=== PATIENT | male | born 1965 | race Caucasian/White ===

== ENCOUNTER 2019-02-07 20:56 | Emergency (ER) | payer OTHER, SELFPAY ==
[2019-02-07 21:01] VITALS: BP 155/107; PULSE 103; RESP 18; TEMP 37.1; O2SAT 95; BMI 38.4
--- NOTE | 2019-02-07 21:06 | EKG12_ITS ---
Test Reason : CP Blood Pressure : / mmHG Vent. Rate : 097 BPM Atrial Rate : 097 BPM P-R Int : 156 ms QRS Dur : 100 ms QT Int : 342 ms P-R-T Axes : 050 -11 043 degrees QTc Int : 434 ms Normal sinus rhythm Normal ECG Confirmed by LOVE VELAZQUEZ, UGO ([id number]), content editor TANIA HACKETT ([id number]) on 02/09/2019 11:57:46 AM Referred By: IGOR Confirmed By:UGO ALEMAN MD
--- NOTE | 2019-02-07 21:10 | RAD_ITS ---
STUDY: X-RAY CHEST REASON FOR EXAM: Male, 54 years old. Cough TECHNIQUE: Frontal view COMPARISON: None. FINDINGS: The lungs are clear and expanded. There is no demonstrated pleural abnormality. Normal size heart. Normal mediastinum and alona. Normal visualized pulmonary arteries. Normal visualized aortic arch and descending thoracic aorta. Normal visualized thoracic spine. Normal visualized ribs, clavicles, and shoulders. There is no demonstrated abnormality of the visualized soft tissue structures of the upper abdomen. RAD/Chest 1 View (Portable) IMPRESSION: Normal x-ray examination of the chest. Electronically Signed: Bimal Rocha DO at 21:23 EDT Tel [phone], Service support ,
--- NOTE | 2019-02-07 21:29 | ED.VIS.GEN ---
History of Present Illness Chief Complaint: Chest Pain Informant: Patient Onset: Days Context: Gradual Onset Timing: Intermittent Current Severity: Moderate Maximum Severity: Moderate Narrative: The patient presents to the emergency department chest pain, shortness of breath, and generalized myalgias. Patient states he is in his normal state of health. He states over the past few days, he has been increasingly short of breath. He states he cannot walk a distance without getting dyspneic. The patient did recently have long travel where he was driving for approximately 12 hours. He states that he noted some pain in his right lower extremity and what felt like a cramp in his calf. Since then, he said more pain in his chest that he describes as a bandlike sensation. He states it feels like he cannot catch his breath or take a deep breath. He states when he takes a deep breath, he will have coughing spells. He is also been having myalgias and arthralgias. He felt like he has had a fever, but is taken his temperature and he has not had one. Patient does have a history of hypertension hyperlipidemia. He denies any history of coronary vascular disease. He denies any nausea or vomiting. Prior similar symptoms: No Recent Illness/Hospitalization: No Past Medical History - Allergies and Home Meds Allergies/Adverse Reactions: Allergies No Known Allergies Allergy (Verified 02/07/19 21:07) Primary Care Physician: Isabell Leiva DO [STAFF PHYSICIAN] - 1 Day Prior records reviewed: Yes Past Medical History: - Smoking Status: Never smoker Review of Systems General: Denies: Chills, Fever, Sweats Eyes: Denies: Visual changes - bilaterally, Diplopia ENT: Denies: Rhinorrhea, Sore throat Cardiovascular: Reports: Chest pain Respiratory: Reports: Dyspnea Gastrointestinal: Reports: Nausea Genitourinary: Denies: Dysuria, Hematuria, Frequency Musculoskeletal: Reports: Myalgias, Arthralgias Skin: Denies: Rash, Wounds Neurological: Denies: Headache, Weakness, Numbness Physical Exam Vital Signs/Narrative: Vital Signs Temp Pulse Resp BP Pulse Ox 02/07/19 21:01 98.7 F 103 H 18 155/107 H 95 Inital Vital Signs reviewed: Yes General: Well nourished, Well developed, No Acute Distress Head: Normocephalic, Atraumatic Eyes: Perrl, EOMI ENT: Moist mucous membranes, No rhinorrhea Neck: Supple, Nontender Cardiovascular: Regular rate, Regular rhythm, No murmurs Respiratory: No distress, CTA bilaterally, Chest nontender Abdomen: Soft, Nontender, Nondistended, Normal bowel sounds Back: Nontender, Normal Inspection Extremities: Nontender, No edema Skin: Normal color, No rash Neurological: Alert, Oriented x3, Cranial nerves II-XII grossly intact, Normal Strength, Normal Sensation Psychological: Normal affect, Normal Mood Diagnostic/Tx/Re-eval Chest X-Ray - ED: 1 View, Normal, Heart, Lungs Clinical Impression(s) from Imaging Studies Chest X-Ray 02/07/19 21:10 IMPRESSION: Normal x-ray examination of the chest. Electronically Signed: Bimal Rocha DO at 21:23 EDT Tel [phone], Service support , Chest CTA 02/07/19 21:50 IMPRESSION: No demonstrated pulmonary embolism or arterial dissection. Bilateral small pulmonary nodules. Electronically Signed: Bimal Rocha DO at 22:35 EDT Tel [phone], Service support , Abnormal Lab Results 02/07/19 02/07/19 21:14 21:14 WBC 7.1 RBC 5.19 Hgb 16.5 Hct 46.6 MCV 89.8 MCH 31.8 MCHC 35.4 RDW Std Deviation 40.6 RDW Coeff of Oniel 12.3 Plt Count 150 MPV 9.6 Immature Gran % (Auto) 0.300 Neut % (Auto) 54.7 Lymph % (Auto) 26.1 Donley % (Auto) 17.6 H Eos % (Auto) 0.7 Baso % (Auto) 0.6 Absolute Neuts (auto) 3.9 Absolute Lymphs (auto) 1.84 Nucleated RBC % 0 Sodium 137 Potassium 3.7 Chloride 102 Carbon Dioxide 27.0 Anion Gap 8 BUN 16 Creatinine 1.33 H Estim Creat Clear Calc 71.31 Est GFR (MDRD) Af Amer 73 Est GFR (MDRD) Non-Af 60 BUN/Creatinine Ratio 12.0 Glucose 127 H Calcium 9.5 Magnesium 2.0 Troponin I < 0.015 - Rhythm Strip Rhythm Strip: Sinus Rhythm Rate: 90 Ectopy: None - EKG Initial EKG Interpretation: Sinus Rhythm, No Acute Injury Pattern Prior: Unchanged - Medical Decision Making The patient presents to the emergency department with a large constellation of symptoms. He has had headache, chest pain, dyspnea, and myalgias. EKG was obtained on arrival. With sinus rhythm without acute ischemia. The patient is also been having dyspnea and feels like he cannot take a deep breath. He had calf pain with recent travel. I did not feel that a d-dimer would effectively rule him out. Screening labs are obtained. He does have a monocytic predominance on his blood work, but otherwise these are unremarkable. His cardiac enzymes are normal. His CTA does not demonstrate any pulmonary embolus, dissection, or pneumonia. I do not have a great reason to explain his entire constellation of symptoms, but I do feel that cardiac rule out would be appropriate. The patient is hesitant for admission. He states he is also been under significant amount of stress. He states that 5 people around his age range have within the past 2 months. 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 He feels like this is wearing on him. The patient wants to follow-up as an outpatient. I did discuss with him my concerns, but he was at least agreeable for repeat troponin testing. Given his intermittent headaches, I did also want to rule out intracranial abnormality so CT of the head was obtained. These are both currently pending. I do feel that his lungs are both negative, based on the patient's ability to get close follow-up, and his lack of other significant symptoms outpatient follow-up would be appropriate. Obviously if there is any abnormalities, admission would be more appropriate and he is agreeable with this plan of care. Disposition is currently pending. CT of the head was unremarkable. There is no acute on normalities. Patient's ESR is only minimally elevated at 40. Repeat troponin is currently pending. If this is negative, the patient was follow-up as an outpatient I feel this is reasonable. If it is positive, the patient will be admitted. Impression 1. Atypical chest pain 2. Myalgias ED Disposition - Plan for ED Patient: Instructions: CHEST PAIN, Uncertain Cause Referrals: Isabell Leiva DO [STAFF PHYSICIAN] - 1 Day
[2019-02-07 21:33] LABS: Absolute Lymphocyte Count 1.84 X10^3/uL (0.83-4.51); Absolute Neutrophil Count 3.9 X10^3/uL (2.0-7.7); Basophil# 0.04 X10^3/uL; Basophil% 0.6 % (0-1); Eosinophil# 0.05 X10^3/uL; Eosinophils% 0.7 % (0-5); Hematocrit 46.6 % (40-54); Hemoglobin 16.5 g/dL (13.0-16.5); Lymphocyte # 1.84 X10^3/ul (4.0); Lymphocyte % 26.1 % (19-41); Mean Corp Hgb Conc 35.4 g/dL (32-36); Mean Corpuscular Hgb 31.8 pg (27.0-32.0); Mean Corpuscular Volume 89.8 fL (80-94); Mean Platelet Vol. 9.6 fl (6.2-12.0); Monocyte# 1.24 X10^3/uL; Monocyte% 17.6 % (0-10); NRBC Flagged by Analyzer 0 % (0-5); Neutrophil # 3.86 X10^3/uL (2.7-7.7); Neutrophil % 54.7 % (47-70); Platelet Count 150 K/mm3 (150-450); RBC Distribution Width CV 12.3 % (11.6-14.6); RBC Distribution Width SD 40.6 fl (35.1-43.9); Red Blood Count 5.19 M/mm3 (4.6-6.2); White Blood Count 7.1 K/mm3 (4.4-11.0)
[2019-02-07] MEDS: 0.9% Normal Saline 1,000 ML 1000 ML IV (21:46)
[2019-02-07] MEDS: Aspirin 81 MG TAB.CHEW 324 MG PO (21:46)
[2019-02-07 21:50] LABS: Anion Gap 8 (5-15); BUN 16 mg/dL (7-18); Calcium,Total 9.5 mg/dL (8.5-10.1); Chloride 102 mmol/L (98-107); Creatinine, Serum 1.33 mg/dL (0.70-1.30); EST Glomerular Filtration Rate 60 mL/min (>60); Est Glom Filt Rate - Afr Amer 73 mL/min (>60); Estimated Creatinine Clearance 71.31 ml/min; Glucose 127 mg/dL (74-106); Potassium 3.7 mmol/L (3.5-5.1); Sodium Level 137 mmol/L (136-145)
--- NOTE | 2019-02-07 21:50 | CT_ITS ---
STUDY: CTA CHEST REASON FOR EXAM: Male, 54 years old. Shortness of breath RADIATION DOSAGE (If Supplied By Facility): CTDIvol = ( 34.83 ) mGy, DLP = ( 490.78 ) mGycm TECHNIQUE: The examination was performed with the intravenous administration of 100ml IV Isovue 370. Post-processing of the angiographic images was performed, with multiplanar reformation and 3D reconstruction. Individualized dose optimization techniques were used for this CT. COMPARISON: None. FINDINGS: Normal enhancement of the main pulmonary artery and right and left pulmonary arteries. Normal enhancement of the bilateral peripheral pulmonary arteries. There is no demonstrated pulmonary embolism. Normal thoracic aorta and visualized great vessels. There is no demonstrated aortic dissection. Normal heart and pericardium. Up to 1.3 cm nodes in the mediastinum. Normal hilar regions. Normal visualized trachea and bronchi. The lungs are well expanded. Right upper lobe 7 mm peripheral nodule, image 157. 6 mm right upper lobe nodule, image 133. Right middle lobe peripheral nodule measuring 6 mm, image 96 Left upper lobe 6 mm nodule, image 120. Normal pleura. Normal chest wall structures. Degenerative vertebral changes. Normal visualized upper abdomen. CT/CTA Chest W/WO Contrast IMPRESSION: No demonstrated pulmonary embolism or arterial dissection. Bilateral small pulmonary nodules. Electronically Signed: Bimal Rocha DO at 22:35 EDT Tel [phone], Service support ,
[2019-02-07 22:00] VITALS: BP 122/71; PULSE 90; RESP 17; O2SAT 94
--- NOTE | 2019-02-07 22:45 | CT_ITS ---
STUDY: CT BRAIN WITHOUT CONTRAST REASON FOR EXAM: Male, 54 years old. Headache RADIATION DOSAGE (If Supplied By Facility): CTDIvol = ( 44.99 ) mGy, DLP = ( 812.98 ) mGycm TECHNIQUE: Transaxial CT imaging of the brain was performed without administration of intravenous contrast material. Individualized dose optimization techniques were used for this CT. COMPARISON: No relevant priors. FINDINGS: Normal soft tissue structures. Normal calvarium. Normal size ventricles and extra-axial spaces for the patient's age. Normal white matter tracts of the cerebral hemispheres. Normal basal ganglia and thalami. Normal brainstem. Normal cerebellum. There is no intracranial hemorrhage. Evaluation is limited by residual contrast from earlier contrast CT study. There are no findings of an acute ischemic infarction. Normal visualized paranasal sinuses. CT/Brain/Head without Contrast IMPRESSION: Normal unenhanced CT scan of the brain. Evaluation is limited by residual contrast from earlier contrast CT study. Electronically Signed: Bimal Rocha DO at 23:16 EDT Tel [phone], Service support ,
[2019-02-07 23:00] VITALS: BP 127/66; PULSE 94; RESP 27; O2SAT 94
[2019-02-07 23:39] LABS: Erythrocyte Sedimentation Rate 40 mm/hr (0-20)
[2019-02-08] VITALS: BP 119/74; PULSE 83; RESP 18; O2SAT 93
[2019-02-08 00:34] VITALS: BP 119/74; PULSE 83; RESP 18; O2SAT 93
== END 2019-02-08 00:36 | disposition home or self-care (01) ==
LOC: ED 21:23
PROVIDERS: Emergency Provider Emergency Medicine
DX: R07.89 Other chest pain (principal); M79.10 Myalgia, unspecified site; I10 Essential (primary) hypertension; E78.5 Hyperlipidemia, unspecified; Z79.82 Long term (current) use of aspirin; Z79.899 Other long term (current) drug therapy
CPT/HCPCS: 70450; 71045; 71275; 80048; 83735; 84484; 85025; 85652; 93005; 96360; 96361; 99285; J7030; Q9967; A4216

== ENCOUNTER → 2020-01-26 11:15 | Outpatient (CLI) | payer BC, SELFPAY ==
--- NOTE | 2020-01-26 11:27 | CT_ITS ---
STUDY: CT ABDOMEN AND PELVIS WITHOUT CONTRAST REASON FOR EXAM: Male, 55 years old. KIDNEY STONE. R SIDED DULL PAIN X MONTHS WORSENING X WEEKS. HEMATURIA. RADIATION DOSAGE (If Supplied By Facility): CTDIvol = ( 21.20 ) mGy, DLP = ( 1149.60 ) mGycm TECHNIQUE: Transaxial images were obtained from the dome of the diaphragm to the symphysis pubis without oral contrast, and without intravenous contrast. Sagittal and coronal images were reconstructed. Individualized dose optimization techniques were used for this CT. COMPARISON: None. FINDINGS: There is a 5.6 mm noncalcified nodule in the right lower lobe as seen on axial image #1. The visualized portions of the heart are within normal limits. Normal liver. Normal gallbladder and extrahepatic biliary system. Normal spleen. Normal pancreas. Normal bilateral adrenal glands. 2 cm cyst in the posterior aspect of the right mid kidney. Normal left kidney. There is a small hiatal hernia. Normal small intestine. Normal colon. There are surgical clips in the region of the appendix consistent with a prior appendectomy. Normal abdominal aorta. Normal inferior vena cava. Normal retroperitoneum. Thickening wall of the urinary bladder although the urinary bladder is not fully distended. No obstructive uropathy is seen. There is a small umbilical hernia containing fat. Normal osseous structures. CT/Abdomen/Pelvis without Cont IMPRESSION: No acute abnormality is seen. 5.6 mm noncalcified nodule in the right lower lobe Electronically Signed: Augustin Castillo, at 12:11 EDT , Service support ,
== END ==
PROVIDERS: Referring Provider Internal Medicine; Visit Provider Internal Medicine
DX: R31.9 Hematuria, unspecified (principal)
CPT/HCPCS: 74176

== ENCOUNTER → 2022-01-30 | Outpatient (CLI) | payer OTHER, SELFPAY ==
--- NOTE | 2022-01-30 15:52 | CT_ITS ---
STUDY: CT CHEST WITH CONTRAST REASON FOR EXAM: Male, 57 years old. Follow up for lung nodules. RADIATION DOSAGE (If Supplied By Facility): CTDIvol = ( 15.65 ) mGy, DLP = ( 702.20 ) mGycm TECHNIQUE: Transaxial imaging was performed following the administration of 100 mL of ISOVUE-300 intravenous contrast material. Multiplanar coronal and sagittal images were reformatted. Individualized dose optimization techniques were used for this CT. COMPARISON: Comparison is made with prior CT scans dated 02/07/2019 and 01/26/2020. FINDINGS: CHEST Stable small benign-appearing bilateral axillary lymph nodes. Stable 6.3 mm noncalcified nodule in the anterior aspect of the right upper lobe as seen on axial image #42. Stable 6 mm noncalcified nodule in the peripheral lateral anterior aspect of the left upper lobe as seen on axial image #57. Stable 6 mm noncalcified nodule in the peripheral lateral aspect of the right middle lobe as seen on axial image #78. There is no demonstrated pleural abnormality. Normal heart and pericardium. No coronary artery calcifications seen. There are multiple small lymph nodes within the mediastinum, which are normal in size and morphology most compatible with reactive lymph hyperplasia. Normal hilar regions. Normal unenhanced pulmonary arteries. Normal aorta arch and descending thoracic aorta. Normal osseous structures. Diffuse fatty infiltration of the liver. Small hiatal hernia. CT/Chest WITH Contrast IMPRESSION: Stable bilateral pulmonary nodules. Electronically Signed: Augustin Castillo MD at 8:57 EDT ,
[2022-01-30 16:26] LABS: CREATININE FINGERSTICK 1.1 mg/dL (0.70-1.30); EGFR FINGERSTICK > 60.0000 mL/min (>60)
== END | disposition home or self-care (01) ==
PROVIDERS: PCP Internal Medicine; Referring Provider Internal Medicine; Visit Provider Internal Medicine
DX: R91.1 Solitary pulmonary nodule (principal)
CPT/HCPCS: 71260; Q9967; A4216

== ENCOUNTER → 2022-11-13 | Outpatient (CLI) | payer BC, SELFPAY ==
--- NOTE | 2022-11-13 07:14 | CT_ITS ---
STUDY: CT PELVIS WITH CONTRAST REASON FOR EXAM: Male, 57 years old. Left-sided groin pain. History of prior appendectomy. RADIATION DOSAGE (If Supplied By Facility): CTDIvol = ( 28.21 ) mGy, DLP = ( 1053.30 ) mGycm TECHNIQUE: Transaxial imaging of the pelvis was performed without oral contrast. Oral and amp; IV Readi-CAT and amp; 100mL Isovue-370 was administered intravenously. Individualized dose optimization techniques were used for this CT. COMPARISON: None. FINDINGS: Normal urinary bladder. Normal visualized small intestine. Normal visualized colon. There is no pelvic fluid. There is no pelvic lymphadenopathy or mass lesion. Normal visualized pelvic arteries. Small umbilical hernia containing fat. No evidence of inguinal hernia. Normal osseous structures. CT/Pelvis WITH IV Contrast IMPRESSION: No evidence of inguinal hernia. Small hernia containing fat. Electronically Signed: Augustin Castillo MD at 11:09 EDT ,
[2022-11-13 07:42] LABS: EGFR FINGERSTICK > 60.0000 mL/min (>60)
== END | disposition home or self-care (01) ==
LOC: CT 07:09
PROVIDERS: PCP Internal Medicine; Referring Provider Surgery; Visit Provider Surgery
DX: R10.32 Left lower quadrant pain (principal)
CPT/HCPCS: 72193; Q9967

== ENCOUNTER → 2023-01-13 | Outpatient (CLI) | payer SELFPAY ==
[2023-01-13 15:31] LABS: Absolute Lymphocyte Count 2.28 X10^3/uL (0.83-4.51); Absolute Neutrophil Count 4.7 X10^3/uL (2.0-7.7); Basophil# 0.05 X10^3/uL; Basophil% 0.6 % (0-1); Eosinophil# 0.14 X10^3/uL; Eosinophils% 1.8 % (0-5); Hematocrit 48.6 % (40-54); Hemoglobin 16.3 g/dL (13.0-16.5); Lymphocyte # 2.28 X10^3/ul (0.83-4.51); Lymphocyte % 28.5 % (19-41); Mean Corp Hgb Conc 33.5 g/dL (32-36); Mean Corpuscular Hgb 31.2 pg (27.0-32.0); Mean Corpuscular Volume 93.1 fL (80-94); Mean Platelet Vol. 9.9 fl (6.2-12.0); Monocyte# 0.78 X10^3/uL; Monocyte% 9.8 % (0-10); NRBC Flagged by Analyzer 0 % (0-5); Neutrophil # 4.71 X10^3/uL (2.7-7.7); Neutrophil % 58.8 % (47-70); Platelet Count 219 K/mm3 (150-450); RBC Distribution Width CV 12.7 % (11.6-14.6); RBC Distribution Width SD 43.4 fl (35.1-43.9); Red Blood Count 5.22 M/mm3 (4.6-6.2)
[2023-01-13 15:45] LABS: Erythrocyte Sedimentation Rate 24 mm/hr (0-20)
[2023-01-13 16:03] LABS: CRP 2.98 mg/L (0.0-3.0); Rheumatoid Factor < 10.0 IU/mL (<15); Uric Acid 6.7 mg/dL (3.5-7.2)
[2023-01-15 16:10] LABS: ANTINUCLEAR ANTIBODIES DIRECT Negative (Negative)
== END | disposition home or self-care (01) ==
PROVIDERS: PCP Internal Medicine; Referring Provider Orthopaedic Surgery; Visit Provider Orthopaedic Surgery
DX: M17.31 Unilateral post-traumatic osteoarthritis, right knee (principal); M25.561 Pain in right knee
CPT/HCPCS: 36415; 84550; 85025; 85652; 86038; 86140; 86431

== ENCOUNTER → 2023-02-09 | Outpatient (CLI) | payer SELFPAY ==
--- NOTE | 2023-02-09 11:06 | RAD_ITS ---
STUDY: X-RAY - CERVICAL SPINE REASON FOR EXAM: Male, 58 years old. CERVICAL PAIN TECHNIQUE: 5 view(s) of the cervical spine were obtained. COMPARISON: 12/18/2021 FINDINGS: Normal anterior atlantoaxial articulation. Normal odontoid process. Normal cervical lordosis. There is multi-level endplate spondylosis. There is multi-level degenerative disc disease with multilevel disc space narrowing. Normal visualized intervertebral neuroforamina. The soft tissue structures are unremarkable. RAD/Cerv Spine 4 or 5 Views IMPRESSION: Degenerative disc disease lower cervical spine, similar to the prior study. MRI may be useful. Electronically Signed: Mo Donato MD at 21:01 EDT ,
--- NOTE | 2023-02-09 11:06 | RAD_ITS ---
STUDY: X-RAY - LUMBAR SPINE REASON FOR EXAM: Male, 58 years old. LUMBAR PAIN TECHNIQUE: 5 view(s) of the lumbar spine were obtained. COMPARISON: None FINDINGS: Normal lumbar lordosis. There is no substantial scoliosis. There is a normal alignment of the vertebrae. There is multilevel endplate spondylosis of the lumbar vertebrae. There is multi-level degenerative disc disease with multi-level disc space narrowing. Facet hypertrophy in the lower lumbar spine. The soft tissue structures are unremarkable. RAD/L/S Spine Min 4 Views IMPRESSION: Degenerative changes of the spine, as detailed above. MRI may be useful. Electronically Signed: Mo Donato MD at 21:00 EDT ,
== END | disposition home or self-care (01) ==
PROVIDERS: PCP Internal Medicine; Referring Provider Anesthesiology Pain Medicine; Visit Provider Anesthesiology Pain Medicine
DX: M54.2 Cervicalgia (principal); M54.50 Low back pain, unspecified
CPT/HCPCS: 72050; 72110

== ENCOUNTER → 2023-03-09 | Outpatient (CLI) | payer SELFPAY ==
[2023-03-09 16:27] LABS: Absolute Lymphocyte Count 2.56 X10^3/uL (0.83-4.51); Basophil# 0.05 X10^3/uL; Basophil% 0.5 % (0-1); Eosinophil# 0.18 X10^3/uL; Eosinophils% 1.8 % (0-5); Hematocrit 48.2 % (40-54); Hemoglobin 15.9 g/dL (13.0-16.5); Lymphocyte # 2.56 X10^3/ul (0.83-4.51); Mean Corpuscular Hgb 30.6 pg (27.0-32.0); Mean Corpuscular Volume 92.9 fL (80-94); Mean Platelet Vol. 9.8 fl (6.2-12.0); Monocyte# 0.97 X10^3/uL; Monocyte% 9.9 % (0-10); NRBC Flagged by Analyzer 0 % (0-5); Neutrophil # 6.03 X10^3/uL (2.7-7.7); Neutrophil % 61.3 % (47-70); Platelet Count 233 K/mm3 (150-450); RBC Distribution Width CV 12.7 % (11.6-14.6); RBC Distribution Width SD 43.4 fl (35.1-43.9); Red Blood Count 5.19 M/mm3 (4.6-6.2); White Blood Count 9.8 K/mm3 (4.4-11.0)
[2023-03-09 16:53] LABS: Erythrocyte Sedimentation Rate 11 mm/hr (0-20)
[2023-03-09 17:01] LABS: AST(SGOT) 30 U/L (15-37); Alanine Aminotransfer ALT/SGPT 58 U/L (16-61); Albumin, Serum 4.1 g/dL (3.2-5.0); Alkaline Phosphatase 113 U/L (45-117); Anion Gap 6 (5-15); BUN 17 mg/dL (7-18); Bilirubin, Direct 0.11 mg/dL (0.00-0.30); Calcium,Total 9.7 mg/dL (8.5-10.1); Chloride 105 mmol/L (98-107); Creatinine, Serum 1.13 mg/dL (0.70-1.30); EST Glomerular Filtration Rate 71 mL/min (>60); Est Glom Filt Rate - Afr Amer 86 mL/min (>60); Globulin 4.3 g/dL (2.2-4.2); Glucose 142 mg/dL (74-106); Potassium 4.1 mmol/L (3.5-5.1); Protein, Total 8.4 g/dL (6.4-8.2); Rheumatoid Factor < 10.0 IU/mL (<15); Sodium Level 138 mmol/L (136-145)
[2023-03-11 11:08] LABS: ANTINUCLEAR ANTIBODIES DIRECT Negative (Negative)
== END | disposition home or self-care (01) ==
LOC: LAB 15:47
PROVIDERS: PCP Internal Medicine; Referring Provider Orthopaedic Surgery; Visit Provider Orthopaedic Surgery
DX: M25.561 Pain in right knee (principal)
CPT/HCPCS: 36415; 80048; 80076; 84550; 85025; 85652; 86038; 86140; 86431